=== PATIENT | female | born 2000 | race African-American/Black ===

== ENCOUNTER 2021-02-04 09:13 | Emergency (ER) | payer OTHER ==
[2021-02-04 09:25] VITALS: BMI 23.3
[2021-02-04 09:59] LABS: BASO % 0.2 % (0-2.0); EOS % 2.6 % (0-4.5); HEMATOCRIT 26.3 % (32.4-45.2); HEMOGLOBIN 8.3 GM/dL (10.7-15.3); LYMPH % 14.6 % (8-40); MCH 23.2 pg (25.7-33.7); MCHC 31.6 g/dl (32.0-36.0); MEAN CELL VOLUME 73.3 fl (80-96); MONO % 14.7 % (3.8-10.2); NEUT % 67.9 % (42.8-82.8); PLATELET COUNT 274 K/MM3 (134-434); RBC 3.59 M/mm3 (3.60-5.2); RDW 16.6 % (11.6-15.6); WHITE BLOOD COUNT 7.8 K/mm3 (4.0-10.0)
[2021-02-04] MEDS ORDERED: ACETAMINOPHEN 325 MG TABLET (FP) PO ONE (10:03)
[2021-02-04] MEDS ORDERED: SODIUM CHLORIDE 1,000 ML IV STA (10:03)
[2021-02-04 10:18] LABS: CALCIUM 9.6 mg/dL (8.5-10.1)
[2021-02-04 10:19] LABS: ALBUMIN 3.9 g/dl (3.4-5.0); BLOOD UREA NITROGEN 7.9 mg/dL (7-18)
[2021-02-04 10:22] LABS: CREATININE 0.6 mg/dL (0.55-1.3)
[2021-02-04 10:23] LABS: BILIRUBIN,TOTAL 0.6 mg/dL (0.2-1)
[2021-02-04 10:24] LABS: TOT PROT 8.7 g/dl (6.4-8.2)
[2021-02-04] MEDS ORDERED: ACETAMINOPHEN 325 MG TABLET (FP) ONE (10:28)
[2021-02-04 10:32] LABS: HCG,QUALITATIVE URINE Negative
[2021-02-04 10:33] LABS: EPI CELLS >36 /uL (0-25.1); HYALINE CASTS 5 /uL (0-3.1); URINE APPEARANCE CLOUDY; URINE BACTERIA 1698 /uL (0-1359); URINE BILIRUBIN NEGATIVE (NEGATIVE); URINE COLOR YELLOW; URINE GLUCOSE (UA) NEGATIVE (NEGATIVE); URINE KETONE TRACE (NEGATIVE); URINE LEUK ESTERASE 2+ (NEGATIVE); URINE NITRITE NEGATIVE (NEGATIVE); URINE PROTEIN TRACE (NEGATIVE); URINE RBC 18 /uL (0-23.9); URINE WBC 75 /uL (0-25.8)
[2021-02-04 11:26] VITALS: BP 121/70; PULSE 98; TEMP 99.5
== END 2021-02-04 12:10 | disposition home or self-care (01) ==
LOC: JERFT 09:13
PROC: 3E0337Z Introduction of Electrolytic and Water Balance Substance into Peripheral Vein, Percutaneous Approach (ICD-10-PCS; principal; 2021-02-04)
DX: N30.00 Acute cystitis without hematuria (principal); R50.9 Fever, unspecified; D50.0 Iron deficiency anemia secondary to blood loss (chronic); N92.4 Excessive bleeding in the premenopausal period
CPT/HCPCS: 36415; 71046-TC-FY; 80053; 81003; 83690; 84703; 85025; 87086; 87880; 99284-25